=== PATIENT | male | born 1950 | race Caucasian/White ===

== ENCOUNTER 2017-02-01 17:59 | Emergency (ER) | payer MEDICARE ==
[~2017-02-01] VITALS: Ht 180.3 cm; Wt 72.6 kg
[~2017-02-01 17:59] MED LIST: Fish Oil
[2017-02-01] MEDS ORDERED: ESCI10TA55 (18:07)
[2017-02-01] MEDS ORDERED: NS IV 1000 ML 1,000 ML IV ONE ×2 (18:17→19:17)
[2017-02-01 18:35] LABS: BASOPHILS % (AUTO) 0 % (0-10); EOSINOPHILS # (AUTO) 0.1 10^3/uL (0.0-0.3); EOSINOPHILS % (AUTO) 1 % (0-10); LYMPHOCYTES # (AUTO) 1.9 X 10^3 (1.0-4.0); LYMPHOCYTES % (AUTO) 30 % (12-44); MEAN CORPUSCULAR HEMOGLOBIN 31 PG (25-34); MEAN CORPUSCULAR HGB CONC 33 G/DL (32-36); MEAN CORPUSCULAR VOLUME 93 FL (80-99); MONOCYTES # (AUTO) 0.8 X 10^3 (0.0-1.0); MONOCYTES % (AUTO) 12 % (0-12); NEUTROPHILS # (AUTO) 3.6 X 10^3 (1.8-7.8); NEUTROPHILS % (AUTO) 57 % (42-75); PLATELET COUNT 314 10^3/uL (130-400); RED BLOOD COUNT 4.87 10^6/uL (4.35-5.85); RED CELL DISTRIBUTION WIDTH 13.1 % (10.0-14.5); WHITE BLOOD COUNT 6.3 10^3/uL (4.3-11.0)
--- NOTE | 2017-02-01 18:35 | ED GI ---
General Chief Complaint: Rect Problems Stated Complaint: RECTAL BLEEDING Nursing Triage Note: RECTAL BLEEING X1HR Sepsis Screen: No Definite Risk Source of Information: Patient, Family Exam Limitations: No Limitations History of Present Illness Time Seen By Provider: 18:00 Initial Comments Here with rectal bleeding for an hour. He has been constipated over the past couple days. He was trying to have a bowel movement today when he noted blood. He has not had a colonoscopy in the past. He seems a little confused currently in the says that he does this intermittently and this is been a little worse since they lost their daughter 3 years ago for cancer. Denies nausea or vomiting. Denies fever or chills. Denies any abdominal pain. Has had increased urination. Timing/Duration: 1-3 Hours Severity/Quality: Moderate, Other (rectal bleeding) Location: Other (rectal) Radiation: No Radiation Activities at Onset: None Modifying Factors: Worsens With Defecating Associated Symptoms: No Fever/Chills, No Nausea/Vomiting, No Shortness of Air, No Weakness Allergies and Home Medications Allergies Coded Allergies: No Known Drug Allergies (Verified , 12/08/07) Home Medications Escitalopram Oxalate 10 Mg Tablet, #30 (Reported) [Fish Oil] , (Reported) Review of Systems Constitutional: see HPI, No chills, No fever EENTM: No Symptoms Reported Respiratory: No Symptoms Reported Cardiovascular: No Symptoms Reported Gastrointestinal: See HPI, Denies Abdominal Pain, Blood Streaked Stools, Rectal Bleeding Genitourinary: No Symptoms Reported Psychiatric/Neurological: See HPI, Depressed, Other (confusion) All Other Systems Reviewed Negative Unless Noted: Yes Past Nijhepb-Bvoqvi-Loasbt Hx Patient Social History Alcohol Use: Occasionally Uses Recreational Drug Use: No Smoking Status: Never a Smoker Recent Foreign Travel: No Contact w/Someone Who Travel: No Recent Infectious Disease Expo: No Recent Hopitalizations: No Immunizations Up To Date Tetanus Booster (TDap): Unknown PED Vaccines UTD: No Seasonal Allergies Seasonal Allergies: No Surgeries Surgeries: Orthopedic Respiratory Hx Respiratory Disorders: No Cardiovascular Hx Cardiac Disorders: No Neurological Hx Neurological Disorders: No Reproductive System Hx Reproductive Disorders: No Genitourinary Hx Genitourinary Disorders: No Gastrointestinal Hx Gastrointestinal Disorders: No Musculoskeletal Hx Musculoskeletal Disorders: Yes Endocrine Hx Endocrine Disorders: No HEENT HX ENT Disorders: No Psychosocial Hx Psychiatric Problems: No Behavioral Health Disorders: Depression Blood Transfusions Hx Blood Disorders: No Reviewed Nursing Assessment Reviewed/Agree w Nursing PMH: Yes Family Medical History Significant Family History: Cancer Physical Exam Vital Signs VS - Last 72 Hours, by Label 02/01/17 18:08 Temp 97.8 Pulse 69 Resp 18 B/P (MAP) 143/88 Pulse Ox 99 O2 Delivery Room Air Capillary Refill : Less Than 3 Seconds General Appearance: WD/WN, no apparent distress HEENT: PERRL/EOMI, pharynx normal Neck: full range of motion, supple Respiratory: lungs clear, normal breath sounds Cardiovascular: regular rate, rhythm, no murmur Gastrointestinal: normal bowel sounds, non tender, soft, no organomegaly Rectal: normal rectal tone, blood streaked stool, hemorrhoids (1 x 1 cm hemorrhoid right lateral aspect.), No mass, No tenderness Extremities: non-tender, normal inspection Back: normal inspection, no CVA tenderness, no vertebral tenderness Neurologic/Psychiatric: alert, oriented x 3 Skin: normal color, warm/dry Progress/Results/Core Measures Results/Orders Lab Results Laboratory Tests Test 02/01/17 18:25 02/01/17 19:20 Range/Units White Blood Count 6.3 4.3-11.0 10^3/uL Red Blood Count 4.87 4.35-5.85 10^6/uL Hemoglobin 14.9 13.3-17.7 G/DL Hematocrit 45 40-54 % Mean Corpuscular Volume 93 80-99 FL Mean Corpuscular Hemoglobin 31 25-34 PG Mean Corpuscular Hemoglobin Concent 33 32-36 G/DL Red Cell Distribution Width 13.1 10.0-14.5 % Platelet Count 314 130-400 10^3/uL Mean Platelet Volume 10.0 7.4-10.4 FL Neutrophils (%) (Auto) 57 42-75 % Lymphocytes (%) (Auto) 30 12-44 % Monocytes (%) (Auto) 12 0-12 % Eosinophils (%) (Auto) 1 0-10 % Basophils (%) (Auto) 0 0-10 % Neutrophils # (Auto) 3.6 1.8-7.8 X 10^3 Lymphocytes # (Auto) 1.9 1.0-4.0 X 10^3 Monocytes # (Auto) 0.8 0.0-1.0 X 10^3 Eosinophils # (Auto) 0.1 0.0-0.3 10^3/uL Basophils # (Auto) 0.0 0.0-0.1 10^3/uL Sodium Level 141 135-145 MMOL/L Potassium Level 3.9 3.6-5.0 MMOL/L Chloride Level 104 98-107 MMOL/L Carbon Dioxide Level 25 21-32 MMOL/L Anion Gap 12 5-14 MMOL/L Blood Urea Nitrogen 16 7-18 MG/DL Creatinine 1.09 0.60-1.30 MG/DL Estimat Glomerular Filtration Rate > 60 BUN/Creatinine Ratio 15 Glucose Level 81 70-105 MG/DL Calcium Level 9.3 8.5-10.1 MG/DL Magnesium Level 2.6 H 1.8-2.4 MG/DL Total Bilirubin 0.7 0.1-1.0 MG/DL Aspartate Amino Transf (AST/SGOT) 18 5-34 U/L Alanine Aminotransferase (ALT/SGPT) 23 0-55 U/L Alkaline Phosphatase 108 40-136 U/L C-Reactive Protein High Sensitivity 0.33 0.00-0.50 MG/DL Total Protein 6.9 6.4-8.2 G/DL Albumin 4.1 3.2-4.5 G/DL Urine Color YELLOW Urine Clarity CLEAR Urine pH 7 5-9 Urine Specific [place] 1.010 L 1.016-1.022 Urine Protein NEGATIVE NEGATIVE Urine Glucose (UA) NEGATIVE NEGATIVE Urine Ketones NEGATIVE NEGATIVE Urine Nitrite NEGATIVE NEGATIVE Urine Bilirubin NEGATIVE NEGATIVE Urine Urobilinogen NORMAL NORMAL MG/DL Urine Leukocyte Esterase NEGATIVE NEGATIVE Urine RBC (Auto) NEGATIVE NEGATIVE Urine RBC NONE /HPF Urine WBC NONE /HPF Urine Squamous Epithelial Cells RARE /HPF Urine Crystals NONE /LPF Urine Bacteria NONE /HPF Urine Casts NONE /LPF Urine Mucus NEGATIVE /LPF Urine Culture Indicated NO My Orders Orders - CHERELLE MARTIN MD Cbc With Automated Diff (02/01/17 18:17) Comprehensive Metabolic Panel (02/01/17 18:17) Hs C Reactive Protein (02/01/17 18:17) Magnesium (02/01/17 18:17) Ua Culture If Indicated (02/01/17 18:17) Saline Lock/Iv-Start (02/01/17 18:17) Ns Iv 1000 Ml (Sodium Chloride 0.9%) (02/01/17 18:17) Ns Iv 1000 Ml (Sodium Chloride 0.9%) (02/01/17 19:17) Acute Abd Series (02/01/17 19:27) Ct Abdomen/Pelvis W (02/01/17 20:21) Iohexol Injection (Omnipaque 350 Mg/Ml 1 (02/01/17 20:30) Ns (Ivpb) (Sodium Chloride 0.9% Ivpb Bag (02/01/17 20:30) Medications Given in ED Current Medications Medications Dose Ordered Sig/Diana Route Start Time Stop Time Status Last Admin Dose Admin Iohexol 100 ml ONCE ONCE IV 02/01/17 20:30 02/01/17 20:31 DC 02/01/17 20:34 100 ML Sodium Chloride 100 ml ONCE ONCE IV 02/01/17 20:30 02/01/17 20:31 DC 02/01/17 20:35 80 ML Sodium Chloride 1,000 ml @ 0 mls/hr Q0M ONCE IV 02/01/17 18:17 02/01/17 18:19 DC 02/01/17 18:24 0 MLS/HR Vital Signs/I&O Vital Sign - Last 12Hours 02/01/17 18:08 Temp 97.8 Pulse 69 Resp 18 B/P (MAP) 143/88 Pulse Ox 99 O2 Delivery Room Air Blood Pressure Mean: 106 Progress Note : Progress Note Seen and evaluated. IV, labs and UA ordered. Rectal exam performed and he is grossly bloody. There is no obvious external bleeding but on exam there was bright red blood. Soft brown stool noted. Concerns for possible internal hemorrhoid. Dr. Bae was in the ER at the time and did talk with the patient and family. They will set up for colonoscopy this week if blood counts are okay and will be available for further care if needed if blood counts are concerning. Monitor patient. 2019: Due to the bowel thickening noted on x-ray , I will get CT abdomen and pelvis for further evaluation. This was discussed with patient and family who agree. Otherwise no concerning findings on labs. 2124: No significant findings on CT scan. Patient's bleeding has markedly decreased. I do believe this is hemorrhoidal at this point but he does need follow-up. This was discussed with patient and family who agree. Discharged home with return precautions. Patient and family verbalize understanding instructions and agreement with plan. Diagnostic Imaging Diagonstic Imaging: Xray Plain Films/CT/US/NM/MRI: abdomen Comments VIA [facility]. [place], [place] NAME: ROBERT RAMIRES [facility] REC#: [id number] PT STATUS: REG ER : 1950 PHYSICIAN: CHERELLE MARTIN MD ADMIT DATE: 02/01/17/ER Draft Date of Exam:02/01/17 ACUTE ABD SERIES Indication: Generalized abdominal pain, bright red blood per rectum. Discussion: AP view of the chest and supine and upright views of the abdomen were obtained, no comparison. The heart and lungs are normal. Mild eventration of the right hemidiaphragm is incidentally noted. No evidence of pneumatosis or pneumoperitoneum. Nondilated thickwalled small bowel is noted throughout, possible gastroenteritis. No constipation. No obstruction. Impression: 1. Thickwalled nondilated small bowel loops, possible gastroenteritis. No obstruction or free air. 2. Normal heart and lungs. Dictated on workstation # [id number] Dict: 02/01/172009 Trans: 02/01/172014 PENDING SALE TO [facility] [id number] Interpreted by: ROSALINA GOODE MD Electronically signed by: Diagonstic Imaging: CT Plain Films/CT/US/NM/MRI: abdomen, pelvis Comments NAME: ROBERT RAMIRES [facility] REC#: [id number] PT STATUS: REG ER : 1950 PHYSICIAN: CHERELLE MARTIN MD ADMIT DATE: 02/01/17/ER Draft Date of Exam:02/01/17 CT ABDOMEN/PELVIS W Procedure: CT abdomen and pelvis with contrast. Technique: Multiple contiguous axial images were obtained through the abdomen and pelvis after administration of intravenous contrast. Indication: Bright red blood per rectum for one hour. Comparison: None. Discussion: The visualized lung bases are well-aerated. Normal heart size. No pleural or pericardial fluid. The gallbladder is contracted. The liver, pancreas, spleen and adrenal glands are unremarkable. Probable 1 cm exophytic left renal cyst with additional 1 cm cyst within the inferior right kidney. No hydronephrosis or stone. The urinary bladder and prostate gland are unremarkable. There is no ascites or pathologically enlarged lymph node identified. The abdominal aorta is normal in caliber. No constipation. No obstruction. No pneumatosis or pneumoperitoneum. The appendix is normal. No diverticulosis. No abnormal appearing small bowel loops identified. No acute osseous abnormality. Impression: No acute abnormality identified within either the abdomen or pelvis. Chronic changes as discussed above. Dictated on workstation # [id number] Dict: 02/01/172053 Trans: 02/01/172117 [facility] [id number] Interpreted by: ROSALINA GOODE MD Electronically signed by: Reviewed: Reviewed by Me Departure Impression Impression: Primary Impression: Hemorrhoids Qualified Codes: K64.9 - Unspecified hemorrhoids Additional Impression: Constipation Qualified Codes: K59.00 - Constipation, unspecified Disposition: HOME, SELF-CARE Condition: Improved Departure-Patient Inst. Decision time for Depature: 21:29 Referrals: SHAYLA BAE JOHN D MD (PCP/Family) Primary Care Physician Patient Instructions: Constipation, Adult (DC), Hemorrhoids (DC) Add. Discharge Instructions: All discharge instructions reviewed with patient and/or family. Voiced understanding. You may take MiraLAX or the generic one capful 3 times daily for the next few days and then once or twice daily thereafter to keep stools soft and normal bowel habit. Call Dr. Bae's office on Friday for appointment. Follow-up with your primary doctor this week for recheck and further evaluation. You may use [id number] hemorrhoid cream per package directions to reduce external hemorrhoid. Return for worse pain, fever, vomiting, increasing active bleeding or other concerns as needed. Copy Copies To 1: SHAYLA BAE DO Copies To 2: ANETTE GUTIERREZ MD, TIMOTHY D MD February 01, 2017 18:35
[2017-02-01 18:52] LABS: ALANINE AMINOTRANSFERASE 23 U/L (0-55); ALBUMIN 4.1 G/DL (3.2-4.5); ANION GAP 12 MMOL/L (5-14); ASPARTATE AMINO TRANSFERASE 18 U/L (5-34); BILIRUBIN,TOTAL 0.7 MG/DL (0.1-1.0); BLOOD UREA NITROGEN 16 MG/DL (7-18); BUN/CREATININE RATIO 15; CALCIUM 9.3 MG/DL (8.5-10.1); CARBON DIOXIDE 25 MMOL/L (21-32); CHLORIDE 104 MMOL/L (98-107); CREATININE SERUM 1.09 MG/DL (0.60-1.30); GFR ESTIMATED > 60; GLUCOSE 81 MG/DL (70-105); MAGNESIUM 2.6 MG/DL (1.8-2.4); POTASSIUM 3.9 MMOL/L (3.6-5.0); SODIUM 141 MMOL/L (135-145); TOTAL PROTEIN 6.9 G/DL (6.4-8.2); hs C REACTIVE PROTEIN 0.33 MG/DL (0.00-0.50)
[2017-02-01 19:28] LABS: BILIRUBIN,URINE NEGATIVE (NEGATIVE); KETONES,URINE NEGATIVE (NEGATIVE); LEUKOCYTE ESTERASE ,URINE NEGATIVE (NEGATIVE); NITRITE,URINE NEGATIVE (NEGATIVE); PH,URINE 7 (5-9); PROTEIN,URINE NEGATIVE (NEGATIVE); UROBILINOGEN,URINE NORMAL (NORMAL)
[2017-02-01 19:34] LABS: SQUAMOUS EPITHELIAL CELL,UR RARE /HPF
--- NOTE | 2017-02-01 20:15 | Diagnostic Imaging Report ---
Indication: Generalized abdominal pain, bright red blood per rectum. Discussion: AP view of the chest and supine and upright views of the abdomen were obtained, no comparison. The heart and lungs are normal. Mild eventration of the right hemidiaphragm is incidentally noted. No evidence of pneumatosis or pneumoperitoneum. Nondilated thickwalled small bowel is noted throughout, possible gastroenteritis. No constipation. No obstruction. Impression: 1. Thickwalled nondilated small bowel loops, possible gastroenteritis. No obstruction or free air. 2. Normal heart and lungs. Dictated by: Dictated on workstation # [id number]
[2017-02-01] MEDS ORDERED: IOHEXOL 350 MG/ML 100 ML (OMNIPAQUE 350) VIAL IV ONE (20:30)
[2017-02-01] MEDS ORDERED: NS 100 ML (IVPB) BAG IV ONE (20:30)
--- NOTE | 2017-02-01 21:18 | Diagnostic Imaging Report ---
Procedure: CT abdomen and pelvis with contrast. Technique: Multiple contiguous axial images were obtained through the abdomen and pelvis after administration of intravenous contrast. Indication: Bright red blood per rectum for one hour. Comparison: None. Discussion: The visualized lung bases are well-aerated. Normal heart size. No pleural or pericardial fluid. The gallbladder is contracted. The liver, pancreas, spleen and adrenal glands are unremarkable. Probable 1 cm exophytic left renal cyst with additional 1 cm cyst within the inferior right kidney. No hydronephrosis or stone. The urinary bladder and prostate gland are unremarkable. There is no ascites or pathologically enlarged lymph node identified. The abdominal aorta is normal in caliber. No constipation. No obstruction. No pneumatosis or pneumoperitoneum. The appendix is normal. No diverticulosis. No abnormal appearing small bowel loops identified. No acute osseous abnormality. Impression: No acute abnormality identified within either the abdomen or pelvis. Chronic changes as discussed above. Dictated by: Dictated on workstation # [id number]
[2017-02-01 21:35] VITALS: BP 168/98
== END 2017-02-01 21:35 | disposition home or self-care (01) ==
LOC: ER 18:00
DX: K64.4 Residual hemorrhoidal skin tags (principal); K59.00 Constipation, unspecified
CPT/HCPCS: 36415; 74022; 74177; 80053; 81000; 83735; 85025; 86141; 96360

== ENCOUNTER 2017-02-11 05:50 | Outpatient (CLI) | payer MEDICARE ==
[~2017-02-11] VITALS: Ht 180.3 cm; Wt 72.6 kg
[~2017-02-11 05:50] MED LIST changes: +ESCI10TA55 PO
== END 2017-02-11 15:01 ==
LOC: PREOP 05:50
PROVIDERS: ATTEND Surgery
DX: Z01.818 Encounter for other preprocedural examination (principal); K62.5 Hemorrhage of anus and rectum

== ENCOUNTER 2017-02-13 08:02 | Day surgery (SDC) | payer MEDICARE ==
[~2017-02-13] VITALS: Ht 180.3 cm; Wt 72.6 kg
[2017-02-13] MEDS ORDERED: LACTATED RINGERS 1,000 ML IV STA (08:08)
[2017-02-13] MEDS ORDERED: NALOXONE 0.4 MG/ML 1 ML (NARCAN) VIAL IVP PRN (08:15)
[2017-02-13] MEDS ORDERED: FLUMAZENIL (ROMAZICON) 0.1 MG/ML 5 ML VIAL INJ PRN (08:15)
[2017-02-13 08:28] VITALS: BP 135/79
[2017-02-13] MEDS ORDERED: MIDAZOLAM 2 MG/2 ML (VERSED) VIAL ONE (08:28)
[2017-02-13] MEDS ORDERED: proPOfol 200 MG/20 ML (DIPRIVAN) VIAL IV ONE ×3 (08:28→09:08)
--- NOTE | 2017-02-13 08:35 | Progress Note-Pre Operative ---
Pre-Operative Progress Note H&P Reviewed The H&P was reviewed, patient examined and no changes noted. Date H&P Reviewed: Feb 13, 2017 Time H&P Reviewed: 08:27 Pre-Operative Diagnosis: Rectal bleed SHAYLA BAE DO Feb 13, 2017 08:35
--- NOTE | 2017-02-13 09:43 | Progress Note-Post Operative ---
Post-Operative Progess Note Surgeon (s)/Movie Star (s) Surgeon SHAYLA BAE DO Movie Star: none Pre-Operative Diagnosis Rectal bleed Post-Operative Diagnosis Polyps Diverticula Int hemorrhoids Procedure & Operative Findings Date of Procedure 02/13/17 Procedure Performed/Findings Colonoscopy with snare polypectomy Anesthesia Type IV sedation Estimated Blood Loss Estimated blood loss (mL): scant Specimens/Packing Specimens Removed Ascending colon polyp x 2 Transverse colon polyp x 2 Descending colon polyp x 2 SHAYLA BAE DO Feb 13, 2017 09:43
--- NOTE | 2017-02-13 09:48 | Endoscopy Discharge Instruct ---
Endo Procedure/Findings Findings 1.: Polyp 2.: Diverticulosis 3.: Internal Hemorrhoids Discharge Instructions - Activity: You might feel a little sleepy until tomorrow. This is due to the medicine you received to relax you. Until tomorrow, you should: NOT drive a car, operate machinery or power tools. NOT drink any alcoholic beverages. NOT make any important decisions or sign importortant papers. Do not return to work until tomorrow, unless otherwise instructed. Resume previous activities tomorrow. Diet: Start by taking liquids. If you tolerate liquids, advance to solid food. Make appointment for one week, Notify Physician - If you experience excessive bleeding, unusual abdominal pain, fever, or chest pain, contact your doctor immediately. [phone] Follow-Up: - I have received and understand the above instructions and will call my doctor if I have any further questions. Patient Signature Date Nurse Signature Other (Relationship) SHAYLA BAE DO Feb 13, 2017 09:48
[2017-02-13 09:55] VITALS: BP 128/77
[2017-02-13 10:25] VITALS: BP 161/94
[2017-02-13 10:40] VITALS: BP 161/94
--- NOTE | 2017-02-13 12:52 | OPERATIVE REPORT ---
DATE OF SERVICE: 02/13/2017 PREOPERATIVE DIAGNOSIS: Rectal bleed. POSTOPERATIVE DIAGNOSES: 1. Multiple colon polyps. 2. Diverticula. 3. Internal hemorrhoids. 4. Rectal bleed. PROCEDURE: Colonoscopy and snare polypectomy. SURGEON: Theo Burgos DO SPECIALIST MANAGERS: None. ANESTHESIA: IV sedation by GEAR SETTER. SPECIMENS: Two polyps from the ascending colon, 2 polyps from the transverse colon and 2 polyps from the descending colon and possibly 1-2 more. BLOOD LOSS: Scant. FLUIDS: Per anesthesia. POSTOPERATIVE CONDITION: Stable. INDICATION FOR PROCEDURE: The patient is a 66-year-old man who has never had a colonoscopy and needs one for rectal bleed. FINDINGS: The patient had multiple large polyps, one in the transverse colon was actually tattooed, a couple of large polyps in the ascending colon and a couple of large polyps in the descending colon as well, as well as some small diverticula and some very small internal hemorrhoids. PROCEDURE NOTE: After informed consent was obtained, the patient was brought to the endoscopy and place in the left lateral decubitus position. He was administered IV sedation by the GEAR SETTER, who monitored his vitals the entire time. A scope was inserted, pushed in all the way, in the transverse colon noted a large polyp. I took this off in 2 pieces and then tattooed this area. I saw another small polyp right around this area and tried to take this off as well. I then continued to the cecum. I took a picture of the appendiceal orifice. I was able to get into the terminal ileum. I took a picture and then slowly withdrew the scope, insufflating to look circumferentially at the danielle, looking at the cecum and then up the ascending colon. In the ascending colon, I saw a couple of small polyps. I took these out with a snare polypectomy. I then continued up, saw the area we had tattooed, then still continued up the ascending colon to the hepatic flexure and then into the transverse colon, I saw the area we had tattooed and then continued down the transverse colon to the splenic flexure and then into the descending colon. In the descending colon, I saw another couple of relatively large polyps, not as big as the one in the transverse colon. These were removed with snare polypectomy. I saw some other small polyps that I elected to leave alone at this time. I continued down the descending colon into the sigmoid. Again, through the sigmoid and descending colon we had seen some diverticula. I saw these again and into the rectum retroflexed in the rectal vault and saw some small internal hemorrhoids. I took a picture of this and then removed the scope. The patient tolerated the procedure well. He will probably need a colonoscopy in a year because of the multiple polyps and the one that we had to take out piecemeal. I would like to believe it was larger than 1 cm and we tattooed this area. He was then transferred to the recovery room in stable condition. Job ID: [id number] DocumentID: [id number] Dictated Date: 02/13/2017 10:54:21 Advisory Application Developer Date: 02/13/2017 12:52:33 Dictated By: THEO BURGOS DO
== END 2017-02-13 10:40 | disposition home or self-care (01) ==
LOC: ENDO 08:02
PROVIDERS: ATTEND Surgery
DX: D12.2 Benign neoplasm of ascending colon (principal); D12.4 Benign neoplasm of descending colon; K63.5 Polyp of colon; K57.30 Diverticulosis of large intestine without perforation or abscess without bleeding; K64.8 Other hemorrhoids; K62.5 Hemorrhage of anus and rectum; F32.9 Major depressive disorder, single episode, unspecified; Z87.891 Personal history of nicotine dependence